=== PATIENT | female | born 1990 | race African-American/Black ===

== ENCOUNTER 2016-10-05 12:23 | Emergency (ER) | payer OTHER, BC ==
[2016-10-05 13:15] LABS: ASCORBIC ACID (UR NOT ORDER) NEG (NEG); BILIRUBIN, URINE NEGATIVE (NEG); ER URINALYSIS TAT 0 Hrs 13 Mins; KETONE, URINE NEGATIVE (NEG); LEUKOCYTE ESTERASE(NOT OR TRACE (NEG); NITRITE (URINE) NEG (NEG); WBC (NOT ORDERED) (RFLEX) 17 (0-5)
== END 2016-10-05 14:12 | disposition home or self-care (01) ==
LOC: ER 12:23
PROVIDERS: Physician Assistant
DX: N39.0 Urinary tract infection, site not specified (principal)
CPT/HCPCS: 81001; 84703; 99283